=== PATIENT | female | born 2000 | race Caucasian/White ===

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

== ENCOUNTER 2019-04-12 11:11 | Emergency (ER) | payer OTHER ==
--- OUTSIDE RECORDS SUMMARY | 2019-04-12 11:16 | XMS REPORT | Summary of Care ---
:2000 Author Organization [facility] Address [address] [facility] [place] [address] Care Team Providers Name Role Phone Quintin Duque MD Primary Care Provider Reason for Visit Reason Comments Physical LMP 03-25-19, pap 3 years ago. Encounter Details Date Type Department Care Team Description 03/27/2019 Office Visit [place] [facility] Mariana Hernandez MD Encounter for gynecological examination (Primary Dx); Medicine [address] [place] [address] Routine general medical examination at a health care facility; [facility] [place] [address] Bipolar affective disorder, currently manic, moderate ([facility]) [place], [place] [id number] Allergies Active Allergy Reactions Severity Noted Date Comments Environmental Hives, Rash, Respiratory High 03/04/2016 Birch and other Reaction environmental allergens. Food Hives, Rash High 03/04/2016 Allergic to apples, carrots, pineapple Nuts Hives, Rash High 03/04/2016 Almonds Progestins Hives High 03/04/2016 HIve reaction to Mirena IUD and oral contraceptives. documented as of this encounter (statuses as of 03/27/2019) Medications Medication Sig Dispensed Refills Start Date End Date Status Desogestrel-Ethinyl Take by mouth. 0 Active Estradiol (ORTHO-CEPT, 21, PO) hyoscyamine (LEVSIN) Take 0.125 mg by 30 Tab 3 09/05/2018 Active 0.125 MG Oral mouth EVERY FOUR TabIndications: Cramp, HOURS NEEDED abdominal for Cramping. hydrOXYzine HCL TAKE 1 TABLET BY 120 Tab 0 12/19/2018 Active (ATARAX) 10 MG Oral MOUTH EVERY 4-6 TabIndications: Eczema, HOURS NEEDED unspecified type ECZEMA lithium (LITHOBID) 300 Take 300 mg by 0 Active MG Oral Tab CR mouth DAILY. clonazePAM (KLONOPIN) Take 0.5 mg by 0 Active 0.25 mg mouth DAILY. documented as of this encounter (statuses as of 03/27/2019) Active Problems Problem Noted Date Bipolar 1 disorder, depressed, severe 04/05/2016 documented as of this encounter (statuses as of 03/27/2019) Social History Tobacco Use Types Packs/Day Years Used Date Former Smoker Cigarettes 0.1 Quit: 10/24/2015 Smokeless Tobacco: Never Used Alcohol Use Drinks/Week oz/Week Comments Yes 3 Shots of liquor 3.0 Pt. reports drinking heavily over past few weeks Sex Assigned at Date Recorded Not on file Job Start Date Occupation Industry Not on file Not on file Not on file Travel History Travel Start Travel End No recent travel history available. documented as of this encounter Last Filed Vital Signs Vital Sign Reading Time Taken Comments Blood Pressure 118/60 03/27/2019 1:34 PM EDT Pulse 60 03/27/2019 1:34 PM EDT Temperature - - Respiratory Rate - - Oxygen Saturation 99% 03/27/2019 1:34 PM EDT Inhaled Oxygen Concentration - - Weight 47.6 kg (105 lb) 03/27/2019 1:34 PM EDT Height 154.9 cm (5' 1") 03/27/2019 1:34 PM EDT Body Mass Index 19.84 03/27/2019 1:34 PM EDT documented in this encounter Progress Notes Mariana Hernandez MD - 03/27/2019 1:00 PM EDT PATIENT: Kay Argueta DATE: 03/27/2019 Kay Argueta is a 19-y.o. female presents for routine physical exam and Also, she has additional complaints of Patient Active Problem List Diagnosis Bipolar 1 disorder, depressed, severe (HCC) Exercize No GALO. No cardiopulmonary symptoms as dyspnea, cough. palpitations, or chest pain on exertion. No upper or lower GI complaints as heartburn, abdominal pain, change in bowel habits, black or bloody stools. No urinary tract symptoms or incontinence. No symptoms as nocturia, discharge Nobruising/ bleeding. No neurological complaints as dysphagia, imbalance, vertigo, focal weakness. No insomnia.+ Rested after nights sleep. No depression. Does not stop breathing at night. Current Outpatient Medications Medication Sig clonazePAM (KLONOPIN) 0.25 mg Take 0.5 mg by mouth DAILY. Desogestrel-Ethinyl Estradiol (ORTHO-CEPT, 21, PO) Take by mouth. hydrOXYzine HCL (ATARAX) 10 MG Oral Tab TAKE 1 TABLET BY MOUTH EVERY 4-6 HOURS NEEDED ECZEMA hyoscyamine (LEVSIN) 0.125 MG Oral Tab Take 0.125 mg by mouth EVERY FOUR HOURS NEEDED forCramping. lithium (LITHOBID) 300 MG Oral Tab CR Take 300 mg by mouth DAILY. No current facility-administered medications for this visit. Social History Socioeconomic History Marital status: Single Spouse name: Not on file Number of children: Not on file Years of education: Not on file Highest education level: Not on file Occupational History Not on file Social Needs Financial resource strain: Not on file Food insecurity: Worry: Not on file Inability: Not on file Transportation needs: Medical: Not on file Non-medical: Not on file Tobacco Use Smoking status: Former Smoker Packs/day: 0.10 Types: Cigarettes Last attempt to quit: 10/24/2015 Years since quittin.4 Smokeless tobacco: Never Used Substance and Sexual Activity Alcohol use: Yes Alcohol/week: 3.0 standard drinks Types: 3 Shots of liquor per week Comment: Pt. reports drinking heavily over past few weeks Drug use: Yes Types: Marijuana Comment: Marijuana use at age 14-15; denies any recent use Sexual activity: Yes Partners: Male Lifestyle Physical activity: Days per week: Not on file Minutes per session: Not on file Stress: Not on file Relationships Social connections: Talks on phone: Not on file Gets together: Not on file Attends uatsdin service: Not on file Active member of club or organization: Not on file Attends meetings of clubs or organizations: Not on file Relationship status: Not on file Intimate partner violence: Fear of current or ex partner: Not on file Emotionally abused: Not on file Physically abused: Not on file Forced sexual activity: Not on file Other Topics Concern Back Care Not Asked Bike Helmet Not Asked Blood Transfusions Not Asked Caffeine Concern Not Asked Exercise Not Asked Hobby Hazards Not Asked International Travel Not Asked Service Not Asked Occupational Exposure Not Asked Seat Belt Not Asked Self-Exams Not Asked Sleep Concern Not Asked Special Diet Not Asked Stress Concern Not Asked Weight Concern Not Asked Social History Narrative Has son - FLINT NONO - Accounting interest - Family History Problem Relation Age of Onset Depression/Depressed Mother Also Severe depression Anxiety Mother GI Father IBS & Intussuseption Migraines Father Eczema Father Eczema Brother Thyroid Disease Maternal Grandmother Bipolar Disorder Maternal Grandmother Psychiatry Maternal Grandfather Unknown Psych Disorder Maternal Grandfather Schizophrenia Other Maternal great aunt Schizophrenia Maternal Aunt Bipolar Disorder Paternal Uncle OBJECTIVE: BP 118/60 | Pulse 60 | Ht 5' 1" (1.549 m) | Wt 105 lb (47.6 kg) | SpO2 99% | BMI 19.84 kg/m Gen well Heent: ears TM and canals normal eyes Perrl; EOMI oroph-wnl Neck- no JVD,thyromegaly, bruit or lymphademopathy No supraclavicular, axillary or inguinal lymphadenopathy Lungs-clear to auscultation CV RRR no Murmur, gallop or clilck Breasts-no masses or diimpling (examined supine and sitting) Abd. nontender; no organomegaly, abnormal pulsations , bowel sounds normoactive - urethra/ vul/vag neg; cervix wnl; uterus wnl, adnexa-unable Thin prep Rectal deferred - Ext-no edema; rash, DP +2 skin- no rashes or suspicious lesions Neuro- intellect intact; CN II.XII intact; U&LE-strength wnl gait nl A/P ICD-9-CM ICD-10-CM 1. Encounter for gynecological examination V72.31 Z01.419 GC/CHLAMYDIA PCR ASSAY PAP SMEAR THINPREP W/ REFLEX HPV GC/CHLAMYDIA PCR ASSAY 2. Routine general medical examination at a health care facility V70.0 Z00.00 3. Bipolar affective disorder, currently manic, moderate (HCC) 296.42 F31.12 Breast self-exam and bone health recommendations were made Chief Complaint Patient presents with Physical LMP 03-25-19, pap 3 years ago. DT PAP today EKG Author: Mariana Hernandez MD documented in this encounter Plan of Treatment Name Type Priority Associated Diagnoses Date/Time GC/CHLAMYDIA PCR ASSAY Lab Routine Encounter for gynecological 03/27/2019 1:30 PM examination EDT PAP SMEAR THINPREP W/ Lab Routine Encounter for gynecological 03/27/2019 1 :30 PM REFLEX HPV examination EDT Name Type Priority Associated Diagnoses Order Schedule GC/CHLAMYDIA PCR Lab Routine Encounter for gynecological Expected: 2018, ASSAY examination Expires: 09/23/2019 Health Maintenance Due Date Last Done Comments CHLAMYDIA SCREENING 1998 PAP SMEAR 1998 HPV IMMUNIZATION SERIES (1 - 2013 Female 3-dose series) INFLUENZA VACCINE (#1) 2019 DEPRESSION SCREENING 03/27/2020 03/27/2019 HIV SCREENING Completed 03/04/2016 MENINGOCOCCAL VACCINE IMM Aged Out No longer eligible based on patient's age to complete this topic PNEUMOCOCCAL 0-64 YRS Aged Out No longer eligible based on patient's age to complete this topic documented as of this encounter Goals Goal Patient Goal Associated Recent Patient-Stated? Author Type Problems Progress Depression Depression No eladio Hernandez (PHQ-9) MD Mariana total score < 5 Note: This is an individualized treatment (depression) goal for Kay Argueta: Displayed above is your goal for a depression screening (PHQ-9) score that would indicate good control of your depression. Keep a regular sleep schedule Lifestyle No Mariana Hernandez MD Note: This is an individualized lifestyle goal for Kay Argueta: Please maintain a regular sleep schedule. This may help with some symptoms of depression. Take all prescribed medications as directed Self-management No Mariana Hernandez MD Note: This is an individualized self-management goal for Kay Argueta: Please take all prescribed medications as directed. 1. Do not skip doses. If you cannot afford your medications, talk with your doctor. 2. Use a pill reminder system such as a pill box if needed. Your pharmacist can help you with this. 3. Contact your Pharmacy 5 days before your medication runs out. If you cannot take your medications for any reasons, talk with your doctor. 4. Please bring all of your medication bottles and inhalers (or a list of all your medications/inhalers) with you to every visit. Potential barriers to meeting all of your care plan goals will continue to be addressed on an ongoing basis. documented as of this encounter Results Not on filedocumented in this encounter Visit Diagnoses Diagnosis Encounter for gynecological examination - Primary Routine general medical examination at a health care facility Bipolar affective disorder, currently manic, moderate (HCC) Bipolar I disorder, most recent episode (or current) manic, moderate documented in this encounter Insurance Payer Benefit Plan / Subscriber ID Effective Dates Phone Address Type Group [employer] AETNA xxxxxxxxxx 2014-Present [employer] (Work) documented as of this encounter
[2019-04-12 12:20] VITALS: BP 112/58
--- NOTE | 2019-04-12 12:35 | UC ---
Throat Pain/Nasal Roman HPI - HPI Summary HPI Summary: 19-year-old female with cold symptoms since midnight. She denies any fever however has felt chilled did - History of Current Complaint Chief Complaint: UCRespiratory Stated Complaint: COUGH Time Seen by Provider: 04/12/19 12:32 Hx Obtained From: Patient Hx Last Menstrual Period: 03/31/19 ?: No Onset/Duration: Gradual Onset, Lasting Hours Severity: Mild Pain Intensity: 6 Cough: Nonproductive Associated Signs & Symptoms: Positive: Nasal Discharge - Allergies/Home Medications Allergies/Adverse Reactions: Allergies Allergy/AdvReac Type Severity Reaction Status Date / Time MS Eggs or Egg-derived Allergy Rash Verified 04/12/19 12:21 Products [Eggs or Egg-derived Products] MS Lactose [Lactose] Allergy Rash Verified 04/12/19 12:21 MS Latex [Latex] Allergy Rash Verified 04/12/19 12:21 Tree Nuts Allergy Swelling Verified 04/12/19 12:21 Of Face,Lips,& Throat control pills Allergy Rash Uncoded 04/12/19 12:21 Home Medications: Home Medications ALPRAZolam [Xanax] 1 tab PO BID PRN 04/12/19 [History Confirmed 04/12/19] Frannie LIQ* [Frannie Liq*] 5 ml PO DAILY WITH MEAL 04/12/19 [History Confirmed 04/12/19] lamoTRIgine TAB(*) [Lamictal TAB(*)] 1 tab PO DAILY 04/12/19 [History Confirmed 04/12/19] PMH/Surg Hx/FS Hx/Imm Hx Previously Healthy: Yes - Surgical History Surgical History: None - Family History Known Family History: Positive: Other - Patient denies relevant FHx - Social History Occupation: Student Lives: Dormitory/Roommates Alcohol Use: None Substance Use Type: None Smoking Status (MU): Former Smoker - Immunization History Most Recent Influenza Vaccination: Has allergies that contraindicate receiving it Most Recent Pneumonia Vaccination: N/A Vaccination Up to Date: Yes Review of Systems All Other Systems Reviewed And Are Negative: Yes Constitutional: Positive: Chills ENT: Positive: Sore Throat, Nasal Discharge Respiratory: Positive: Cough - Nonproductive cough Is Patient Immunocompromised?: No Physical Exam Triage Information Reviewed: Yes Appearance: Well-Appearing, No Pain Distress, Well-Nourished Vital Signs: Initial Vital Signs Temp 98.1 F 04/12/19 12:13 Pulse 76 04/12/19 12:13 Resp 18 04/12/19 12:13 BP 112/58 04/12/19 12:13 Pulse Ox 100 04/12/19 12:13 Vital Signs Reviewed: Yes Eyes: Positive: Conjunctiva Clear ENT: Positive: Hearing grossly normal, Pharynx normal, Nasal congestion, Nasal drainage - Clear nasal coryza, TMs normal, Uvula midline Neck: Positive: Supple, Nontender, No Lymphadenopathy Respiratory: Positive: Lungs clear, Normal breath sounds, No respiratory distress, No accessory muscle use Cardiovascular: Positive: RRR, No Murmur, Pulses Normal, Brisk Capillary Refill Abdomen Description: Positive: Nontender, No Organomegaly, Soft. Negative: CVA Tenderness (R), CVA Tenderness (L) Bowel Sounds: Positive: Present Musculoskeletal Exam: Normal Neurological Exam: Normal Psychological Exam: Normal Skin Exam: Normal Throat Pain/Nasal Course/Dx - Course Course Of Treatment: I believe the patient has a viral upper respiratory illness. 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 She is to increase fluids. She states [id number] medications don't work for her therefore I'm giving her prescription for benzonatate for her cough. She is not coughing frequently. She is to follow-up with the [facility] if no improvement in 4 or 5 days. - Differential Dx/Diagnosis Provider Diagnosis: URI (upper respiratory infection) Discharge ED - Sign-Out/Discharge Documenting (check all that apply): Patient Departure All imaging exams completed and their final reports reviewed: No Studies - Discharge Plan Condition: Good Disposition: HOME Prescriptions: Benzonatate CAP* [Tessalon 100 MG CAP*] 100 mg PO TID PRN #15 cap PRN Reason: Cough Patient Education Materials: Upper Respiratory Infection (DC) Referrals: No Primary Care Phys,NOPCP [Primary Care Provider] - [facility] - Cesario MOREIRA [[employer], APPLICATION, OTHER] - Additional Instructions: Increase fluids, [id number] cold medicine as directed, follow up at the Health Center if no improvement in 4 or 5 days. - Billing Disposition and Condition Condition: GOOD Disposition: Home
== END 2019-04-12 12:54 | disposition home or self-care (01) ==
LOC: UCEAST 11:11
DX: J06.9 Acute upper respiratory infection, unspecified (principal); Z87.891 Personal history of nicotine dependence; Z91.040 Latex allergy status
CPT/HCPCS: 99212; G0463

== ENCOUNTER 2019-06-15 15:16 | Emergency (ER) | payer OTHER ==
[2019-06-15 15:29] VITALS: BP 111/71
--- NOTE | 2019-06-15 16:04 | UC ---
Throat Pain/Nasal Roman HPI - HPI Summary HPI Summary: 19 year old female with PMH + for asthma presents with sinus pressure/ congestion, cough "rattling in chest" x 3 weeks. progressively worsening, + fatigue, no fever, chills. + diarrhea, but increased use of caffiene over past week due to finals. minimal abdominal pain, no GALO, no ear, throat pain. - History of Current Complaint Chief Complaint: UCRespiratory Stated Complaint: COUGH,CONGESTION Time Seen by Provider: 06/15/19 16:03 Hx Obtained From: Patient Hx Last Menstrual Period: 03/31/19 ?: No Onset/Duration: Sudden Onset Severity: Mild Pain Intensity: 0 Pain Scale Used: 0-10 Numeric Cough: None Associated Signs & Symptoms: Negative: Dysphagia, Sinus Discomfort, Nasal Discharge, Fever, Vomiting - Allergies/Home Medications Allergies/Adverse Reactions: Allergies Allergy/AdvReac Type Severity Reaction Status Date / Time lactose Allergy Rash Verified 06/15/19 15:30 latex Allergy Rash Verified 06/15/19 15:30 Tree Nuts Allergy Swelling Verified 06/15/19 15:30 Of Face,Lips,& Throat control pills Allergy Rash Uncoded 06/15/19 15:30 eggs Allergy Rash Uncoded 06/15/19 15:30 PMH/Surg Hx/FS Hx/Imm Hx Previously Healthy: Yes Respiratory History: Asthma - Surgical History Surgical History: None - Family History Known Family History: Positive: Other - Patient denies relevant FHx, Non- Contributory - Social History Occupation: Student Alcohol Use: Occasionally Substance Use Type: None Smoking Status (MU): Current Some Day Smoker - Immunization History Most Recent Influenza Vaccination: Has allergies that contraindicate receiving it Most Recent Pneumonia Vaccination: N/A Vaccination Up to Date: Yes Review of Systems All Other Systems Reviewed And Are Negative: Yes Constitutional: Negative: Fever, Chills, Fatigue ENT: Positive: Nasal Discharge, Sinus Congestion, Sinus Pain/Tenderness. Negative: Sore Throat, Ear Ache Respiratory: Positive: Cough Cardiovascular: Positive: Negative Motor: Positive: Negative Psychological: Positive: Negative Is Patient Immunocompromised?: No Physical Exam Triage Information Reviewed: Yes Appearance: Well-Appearing, No Pain Distress, Well-Nourished Vital Signs: Initial Vital Signs Temp 98.2 F 06/15/19 15:25 Pulse 90 06/15/19 15:25 Resp 18 06/15/19 15:25 BP 111/71 06/15/19 15:25 Pulse Ox 100 06/15/19 15:25 Vital Signs Reviewed: Yes Eyes: Positive: Conjunctiva Clear ENT: Positive: Pharynx normal, Nasal congestion, Nasal drainage, Sinus tenderness, Uvula midline. Negative: TMs normal, TM bulging, TM dull, TM red, Tonsillar swelling, Tonsillar exudate Neck: Positive: Supple, No Lymphadenopathy, Tenderness @ - vicente-auricular tenderness Respiratory: Positive: Chest non-tender, Lungs clear, Normal breath sounds, No respiratory distress, No accessory muscle use. Negative: Respiratory distress, Crackles, Rhonchi, Stridor, Wheezing Cardiovascular: Positive: RRR Neurological Exam: Normal Psychological Exam: Normal Throat Pain/Nasal Course/Dx - Course Course Of Treatment: sinusitis: v- ANtibiotics as directed due to length of time of symptoms - Use back up control method until starting new control ring after finished antibiotics. - Increase fluid intake - over the counter medications as needed for symptoms- ie cough drops, decongestants. - School note given - Differential Dx/Diagnosis Differential Diagnosis/HQI/PQRI: Pharyngitis, Sinusitis, URI Provider Diagnosis: Sinusitis Discharge ED - Sign-Out/Discharge Documenting (check all that apply): Patient Departure All imaging exams completed and their final reports reviewed: No Studies - Discharge Plan Condition: Good Disposition: HOME Prescriptions: Amoxicillin PO (*) [Amoxicillin 875 MG (*)] 875 mg PO BID #20 tab Patient Education Materials: Sinusitis (ED) Forms: *School Release Referrals: No Primary Care Phys,NOPCP [Primary Care Provider] - Additional Instructions: - ANtibiotics as directed - Use back up control method until starting new control ring after finished antibiotics. - Increase fluid intake - over the counter medications as needed for symptoms- ie cough drops, decongestants. - School note given - Billing Disposition and Condition Condition: GOOD Disposition: Home
== END 2019-06-15 16:30 | disposition home or self-care (01) ==
LOC: UCEAST 15:16
DX: J32.9 Chronic sinusitis, unspecified (principal); R53.83 Other fatigue; R19.7 Diarrhea, unspecified; R10.9 Unspecified abdominal pain; J45.909 Unspecified asthma, uncomplicated; F17.200 Nicotine dependence, unspecified, uncomplicated; R07.0 Pain in throat; Z91.011 Allergy to milk products; Z91.040 Latex allergy status; Z91.018 Allergy to other foods; Z91.012 Allergy to eggs; Z88.8 Allergy status to other drugs, medicaments and biological substances
CPT/HCPCS: 99212; G0463

== ENCOUNTER 2019-09-02 17:15 | Emergency (ER) | payer OTHER ==
[2019-09-02 18:34] VITALS: BP 113/62
--- NOTE | 2019-09-02 18:55 | UC ---
Throat Pain/Nasal Roman HPI - HPI Summary HPI Summary: 19 year old female with PMH + for sinusitis in past presents with 2 months of illness. DIagnosed with sinusitis ~ 1 month ago, given augmentin x 1 week roughly, however ineffective. + sinus drainage, PND, headache- frontal, overall ill/ fatigue feeling. no GI symptoms, no throat pain. + ear fullness , no pain. - History of Current Complaint Chief Complaint: UCGeneralIllness Stated Complaint: COUGH & CONGESTION X 2 MONTHS Time Seen by Provider: 09/02/19 18:49 Hx Obtained From: Patient Hx Last Menstrual Period: 1 week ago ?: No Onset/Duration: Gradual Onset, Lasting Weeks Severity: Moderate Pain Intensity: 5 Pain Scale Used: 0-10 Numeric Cough: None Associated Signs & Symptoms: Positive: Sinus Discomfort, Nasal Discharge - Allergies/Home Medications Allergies/Adverse Reactions: Allergies Allergy/AdvReac Type Severity Reaction Status Date / Time lactose Allergy Rash Verified 09/02/19 18:34 latex Allergy Rash Verified 09/02/19 18:34 Tree Nuts Allergy Swelling Verified 09/02/19 18:34 Of Face,Lips,& Throat control pills Allergy Rash Uncoded 09/02/19 18:34 eggs Allergy Rash Uncoded 09/02/19 18:34 Home Medications: Home Medications Agnew Carbonate TAB* 09/02/19 [History] PMH/Surg Hx/FS Hx/Imm Hx Previously Healthy: Yes - Surgical History Surgical History: None - Family History Known Family History: Positive: Other - Patient denies relevant FHx, Non- Contributory - Social History Occupation: Student Alcohol Use: Occasionally Substance Use Type: Marijuana Smoking Status (MU): Never Smoked Tobacco - Immunization History Most Recent Influenza Vaccination: Has allergies that contraindicate receiving it Most Recent Pneumonia Vaccination: N/A Vaccination Up to Date: Yes Review of Systems All Other Systems Reviewed And Are Negative: Yes Constitutional: Positive: Fatigue ENT: Positive: Nasal Discharge, Sinus Congestion, Sinus Pain/Tenderness Respiratory: Positive: Negative Neurological/Mental Status: Positive: Headache Is Patient Immunocompromised?: No Physical Exam Triage Information Reviewed: Yes Appearance: No Pain Distress, Well-Nourished, Ill-Appearing - mild Vital Signs: Initial Vital Signs Temp 98.3 F 09/02/19 18:31 Pulse 83 09/02/19 18:31 Resp 16 09/02/19 18:31 BP 113/62 09/02/19 18:31 Pulse Ox 100 09/02/19 18:31 Vital Signs Reviewed: Yes Eyes: Positive: Conjunctiva Clear ENT: Positive: Hearing grossly normal, Pharynx normal, Nasal congestion, Nasal drainage, TMs normal, Sinus tenderness - b/l frontal, max. Negative: Tonsillar swelling, Tonsillar exudate, Uvula midline Neck: Positive: Supple, Nontender, No Lymphadenopathy. Negative: Nuchal Rigidity, Enlarged Nodes @ Respiratory: Positive: Chest non-tender, Lungs clear, Normal breath sounds, No respiratory distress, No accessory muscle use. Negative: Respiratory distress, Crackles, Rhonchi, Stridor, Wheezing Cardiovascular: Positive: RRR, No Murmur Musculoskeletal: Positive: Strength Intact - normal gait Neurological Exam: Normal Neurological: Positive: Alert, Muscle Tone Normal Psychological Exam: Normal Skin Exam: Normal Throat Pain/Nasal Course/Dx - Course Course Of Treatment: Sinusitis - Antibiotics as directed - Decongestants, over the counter as needed for symptoms - INcrease fluid intake - Motrin/Tylenol as needed for pain, headache - GO to ER with worsening symptoms, worsening headache, neck pain - Differential Dx/Diagnosis Differential Diagnosis/HQI/PQRI: Pharyngitis, Sinusitis Provider Diagnosis: Sinusitis Discharge ED - Sign-Out/Discharge Documenting (check all that apply): Patient Departure All imaging exams completed and their final reports reviewed: No Studies - Discharge Plan Condition: Good Disposition: HOME Prescriptions: Azithromyxin BIN (NF) [Z-Bin (Zithromax) 250 mg tabs #6] 2 tab PO .TODAY, THEN 1 DAILY #6 tab Patient Education Materials: Sinusitis (ED) Referrals: No Primary Care Phys,NOPCP [Primary Care Provider] - Additional Instructions: - Antibiotics as directed - Decongestants, over the counter as needed for symptoms - INcrease fluid intake - Motrin/Tylenol as needed for pain, headache - GO to ER with worsening symptoms, worsening headache, neck pain - Billing Disposition and Condition Condition: GOOD Disposition: Home
== END 2019-09-02 19:20 | disposition home or self-care (01) ==
LOC: UCEAST 17:15
DX: J32.9 Chronic sinusitis, unspecified (principal); Z88.8 Allergy status to other drugs, medicaments and biological substances; Z91.012 Allergy to eggs; Z91.040 Latex allergy status; Z91.011 Allergy to milk products; Z91.018 Allergy to other foods
CPT/HCPCS: 99212; G0463

== ENCOUNTER 2019-09-21 20:28 | Emergency (ER) | payer OTHER ==
[2019-09-21 22:25] LABS: ABS Eosinophils 0.1 10^3/ul (0-0.6); ABS Monocytes 0.5 10^3/ul (0-0.8); ABS Neutrophils 2.8 10^3/ul (1.5-7.7); Eosinophil % 1.1 %; Hematocrit 44 % (35-47); Hemoglobin 15.1 g/dL (12.0-16.0); Mean Corpuscular HGB Conc 34 g/dL (31-36); Mean Corpuscular Hemoglobin 29 pg (27-31); Mean Corpuscular Volume 86 fL (80-97); Mean Platelet Volume 7.8 fL (7.4-10.4); Nucleated Red Blood Cells % 0.1; Platelet Count 262 10^3/uL (150-450); Red Blood Count 5.17 10^6 /uL (3.70-4.87); Red Cell Distribution Width 13 % (10-15); White Blood Count 5.4 10^3/uL (3.5-10.8)
[2019-09-21 22:44] LABS: ALT 12 U/L (7-52); AST 16 U/L (13-39); Albumin 4.6 g/dL (3.2-5.2); Albumin/Globulin Ratio 1.4 (1-3); Alkaline Phosphatase 41 U/L (34-104); Anion Gap 7 mmol/L (2-11); BUN/Creatinine Ratio 18.4 (8-20); Blood Urea Nitrogen 14 mg/dL (6-24); C Reactive Protein 3.79 mg/L (<8.01); CO2 Carbon Dioxide 25 mmol/L (22-32); Chloride 105 mmol/L (101-111); EGFR African American 116.2 (>60); EGFR Non-African American 96.1 (>60); Globulin 3.2 g/dL (2-4); Glucose 93 mg/dL (70-100); Potassium 4.4 mmol/L (3.5-5.0); Sodium 137 mmol/L (135-145); Total Protein 7.8 g/dL (6.4-8.9)
[2019-09-21] MEDS ORDERED: Ibuprofen TAB* 600 MG PO ONE (22:46)
--- NOTE | 2019-09-21 22:48 | ED ---
Back Pain - HPI Summary HPI Summary: 19-year-old female presents to the emergency department today with a chief complaint of back pain. Patient states she's had 8 out of 10 back pain for approximately 3 days. Patient states her back pain is located on the right mid back as well as the right lower back. Patient denies recent trauma or falls. Patient denies any numbness or tingling, difficulty with ambulation, radiculopathy. Patient states she has no pain with urination or difficulty urinating. Patient is otherwise well and denies fever, chest pain, abdominal pain, pain with urination, rash, nausea, vomiting, diarrhea. Patient denies personal or family history of cancer, autoimmune disorders. - History of Current Complaint Chief Complaint: EDBackInjuryPain Stated Complaint: BACK PAIN PER PT Time Seen by Provider: 09/21/19 22:18 Hx Obtained From: Patient Hx Last Menstrual Period: 1 week ago Onset/Duration: Gradual Onset Onset/Duration: Started Days Ago Timing: Constant Severity Initially: Mild Severity Currently: Severe Pain Intensity: 8 Pain Scale Used: 0-10 Numeric Character: Aching Aggravating Symptom(s): Movement, Lifting, Bending, Walking Alleviating Symptom(s): Rest Associated Signs And Symptoms: Negative: Swelling, Redness, Fever, Weakness, Numbness, Bladder Incontinence, Bowel Incontinence - Allergies/Home Medications Allergies/Adverse Reactions: Allergies Allergy/AdvReac Type Severity Reaction Status Date / Time lactose Allergy Rash Verified 09/21/19 22:24 latex Allergy Rash Verified 09/21/19 22:24 Tree Nuts Allergy Swelling Verified 09/21/19 22:24 Of Face,Lips,& Throat control pills Allergy Rash Uncoded 09/21/19 22:24 eggs Allergy Rash Uncoded 09/21/19 22:24 Home Medications: Home Medications Cyclobenzaprine TAB* [Flexeril 10 MG TAB*] 10 mg PO TID PRN #12 tab 09/21/19 [Rx ] Etonogestrel/Ethinyl Estradiol [Etonogestrel-Ee Vaginal Ring] 1 applic INTRA- CAVE MONTHLY 09/21/19 [History Confirmed 09/21/19] PMH/Surg Hx/FS Hx/Imm Hx Endocrine/Hematology History: Denies: Hx Diabetes, Hx Thyroid Disease Cardiovascular History: Denies: Hx Hypertension Respiratory History: Reports: Hx Asthma Denies: Hx Chronic Obstructive Pulmonary Disease (COPD) GI History: Reports: Hx Gastroesophageal Reflux Disease - ESOPHAGEAL REFLUX, Hx Irritable Bowel Denies: Hx Ulcer Sensory History: Denies: Hx Contacts or Glasses, Hx Hearing Aid Opthamlomology History: Denies: Hx Contacts or Glasses Psychiatric History: Reports: Hx Anxiety, Hx Attention Deficit Hyperactivity Disorder, Hx Depression, Hx Bipolar Disorder, Other Psychiatric Issues/ Disorders - ADHD Denies: Hx of Violent Episodes Against Others Infectious Disease History: Yes Infectious Disease History: Denies: Hx Clostridium Difficile, Hx Hepatitis, Hx Human Immunodeficiency Virus (HIV), Hx of Known/Suspected MRSA, Hx Tuberculosis, Hx Known/Suspected VRE , Hx Known/Suspected VRSA, Traveled Outside the [place] in Last 30 Days - Family History Known Family History: Positive: Other - Patient denies relevant FHx, Non- Contributory - Social History Alcohol Use: Occasionally Hx Substance Use: No Substance Use Type: Reports: Marijuana Substance Use Comment - Amount & Last Used: daily Hx Tobacco Use: No Smoking Status (MU): Never Smoked Tobacco Review of Systems Constitutional: Negative Eyes: Negative ENT: Negative Cardiovascular: Negative Respiratory: Negative Gastrointestinal: Negative Genitourinary: Negative Positive: Arthralgia, Myalgia Skin: Negative Neurological/Mental Status: Negative Psychological: Normal All Other Systems Reviewed And Are Negative: Yes Physical Exam - Summary Physical Exam Summary: Patient is in no acute distress. Patient has a antalgic gait however she is ambulatory. Patient is able to walk on her heels, toes, 1 foot from the other. Patient's balance is intact. [id number] intact. Patient has full range of motion of the cervical and lumbar spine. Negative Spurling test. Negative straight leg test. No evidence of ecchymosis, edema, erythema of the spine. Patient has pain with palpation of the paraspinal muscles on the thoracic spine. No midline tenderness. Triage Information Reviewed: Yes Vital Signs On Initial Exam: Initial Vitals Temp Pulse Resp BP Pulse Ox 98 F 99 18 170/70 99 09/21/19 20:32 09/21/19 20:32 09/21/19 20:32 09/21/19 20:32 09/21/19 20:32 Vital Signs Reviewed: Yes Appearance: Positive: Well-Appearing, No Pain Distress, Well-Nourished Skin: Positive: Warm, Skin Color Reflects Adequate Perfusion Eyes: Positive: EOMI, GONZALO ENT: Positive: Hearing grossly normal Respiratory/Lung Sounds: Positive: Clear to Auscultation, Breath Sounds Present Cardiovascular: Positive: RRR, S1, S2 Abdomen Description: Positive: Nontender, Soft Bowel Sounds: Positive: Present Musculoskeletal: Positive: Strength/ROM Intact Neurological: Positive: Sensory/Motor Intact, Alert, Oriented to Person Place, Time, Normal Gait, Facial Symmetry, Speech Normal Psychiatric: Positive: Normal, Affect/Mood Appropriate AVPU Assessment: Alert Procedures - Sedation Patient Received Moderate/Deep Sedation with Procedure: No Diagnostics - Vital Signs Vital Signs Temp Pulse Resp BP Pulse Ox 09/21/19 20:32 98 F 99 18 170/70 99 - Laboratory Lab Results: Lab Results 09/21/19 09/21/19 09/21/19 Range/Units 22:14 22:14 22:14 WBC 5.4 (3.5-10.8) 10^3/uL RBC 5.17 H (3.70-4.87) 10^6 /uL Hgb 15.1 (12.0-16.0) g/dL Hct 44 (35-47) % MCV 86 (80-97) fL MCH 29 (27-31) pg MCHC 34 (31-36) g/dL RDW 13 (10-15) % Plt Count 262 (150-450) 10^3/uL MPV 7.8 (7.4-10.4) fL Neut % (Auto) 52.0 % Lymph % (Auto) 37.0 % [place] % (Auto) 9.4 % Eos % (Auto) 1.1 % Baso % (Auto) 0.5 % Absolute Neuts (auto) 2.8 (1.5-7.7) 10^3/ul Absolute Lymphs (auto) 2.0 (1.0-4.8) 10^3/ul Absolute Monos (auto) 0.5 (0-0.8) 10^3/ul Absolute Eos (auto) 0.1 (0-0.6) 10^3/ul Absolute Basos (auto) 0.0 (0-0.2) 10^3/ul Absolute Nucleated RBC 0.0 10^3/ul Nucleated RBC % 0.1 Sodium 137 (135-145) mmol/L Potassium 4.4 (3.5-5.0) mmol/L Chloride 105 (101-111) mmol/L Carbon Dioxide 25 (22-32) mmol/L Anion Gap 7 (2-11) mmol/L BUN 14 (6-24) mg/dL Creatinine 0.76 (0.51-0.95) mg/dL Est GFR ( Amer) 116.2 (>60) Est GFR (Non-Af Amer) 96.1 (>60) BUN/Creatinine Ratio 18.4 (8-20) Glucose 93 (70-100) mg/dL Lactic Acid 0.9 (0.5-2.0) mmol/L Calcium 10.0 (8.6-10.3) mg/dL Total Bilirubin 0.40 (0.2-1.0) mg/dL AST 16 (13-39) U/L ALT 12 (7-52) U/L Alkaline Phosphatase 41 (34-104) U/L C-Reactive Protein 3.79 (<8.01) mg/L Total Protein 7.8 (6.4-8.9) g/dL Albumin 4.6 (3.2-5.2) g/dL Globulin 3.2 (2-4) g/dL Albumin/Globulin Ratio 1.4 (1-3) Beta HCG, Quant Pending Result Diagrams: 09/21/19 22:14 09/21/19 22:14 Lab Statement: Any lab studies that have been ordered have been reviewed, and results considered in the medical decision making process. Back Pain Course/Dx - Course Course Of Treatment: Patient was evaluated in the emergency department today for back pain. Vitals are stable. Patient has no evidence of fever. There is no evidence of cauda equina. Laboratory studies returned with no modalities. No leukocytosis, electrolyte disturbance, anemia. Patient denies history of trauma. Patient's symptoms are consistent with mechanical back pain due to muscle spasm. Patient discharged with outpatient follow-up. Patient given outpatient prescription for ibuprofen and Flexeril. - Diagnoses Differential Diagnosis/HQI/PQRI: Positive: Cauda Equina Syndrome, Compressive Cord Syndrome, Epidural Abscess, Herniated Disc, Strain, Sprain Provider Diagnoses: Back pain Discharge ED - Sign-Out/Discharge Documenting (check all that apply): Patient Departure - Discharge Plan Condition: Stable Disposition: HOME Prescriptions: Cyclobenzaprine TAB* [Flexeril 10 MG TAB*] 10 mg PO TID PRN #12 tab PRN Reason: Pain - Moderate Patient Education Materials: Back Pain (ED) Referrals: No Primary Care Phys,NOPCP [Primary Care Provider] - Additional Instructions: You were seen in the emergency department today for back pain. Please follow up with your primary care physician in 5 days for further evaluation and management of your injury. Please take for your symptoms: Ibuprofen 600mg three times daily with meals for pain. (Anti Inflammatory) Flexeril 10mg every 6 hours as needed for pain. (Muscle relaxant) Most people with an episode of low back pain do not have a serious medical problem, and can try simple treatments such as: ?Staying active The best thing you can do is to stay as active as possible. People with low back pain recover faster if they stay active. If your pain is severe, you might need to rest for a day or 2. But it's important to get back to walking and moving as soon as possible. While you should avoid heavy lifting and sports while your back hurts, try to keep doing your normal daily activities. ?Heat Some people find that it helps to use a heating pad or heated wrap. Be careful to avoid high heat settings to prevent skin tyler. Spinal manipulation This is when a chiropractor, physical therapist, or other professional moves or "adjusts" the joints of your back. If you want to try this, talk to your doctor or nurse first. Acupuncture This is when someone who knows traditional [place] medicine inserts tiny needles into your body to block pain signals. Massage While back pain usually goes away within a few weeks, some people do continue to have pain for longer. In this case, additional treatments might include: ?Self care This involves being aware of your pain. While you should rest when you need to, it's important to stay active as much as you can. Things like applying heat and doing gentle stretches can help you feel better, too. ?Physical therapy A physical therapist is an exercise expert who can teach you stretches and movements to help strengthen your muscles. The goal is to relieve pain but also help you get back to your normal activities. Exercises you can try include walking, swimming, or using an exercise bike. Some people also find that [employer] or yoga can help with their back pain. Finding activities you enjoy can help you stay active. ?Reducing stress Some people find that it helps to try something called "mindfulness-based stress reduction." This involves going to a group program to practice relaxation and meditation. If your back pain is making you feel anxious or depressed, talk to your doctor or nurse. There are other treatments that can help with these problems. Only a small number of people end up needing surgery to treat back pain. Please follow-up with your [facility] for further evaluation and management. Please return to the emergency department immediately if you develop any new or worsening symptoms. - Billing Disposition and Condition Condition: STABLE Disposition: Home
[2019-09-21 22:51] LABS: HCG Pregnancy < 0.60 mIU/mL
[2019-09-21] MEDS ORDERED: Cyclobenzaprine TAB* 10 MG PO ONE (22:57)
[2019-09-21 23:17] VITALS: BP 115/82
== END 2019-09-21 23:15 | disposition home or self-care (01) ==
LOC: ED 20:28
DX: M54.6 Pain in thoracic spine (principal); M54.5 Low back pain; Z88.8 Allergy status to other drugs, medicaments and biological substances; Z91.030 Bee allergy status; Z91.040 Latex allergy status; Z91.011 Allergy to milk products; Z91.018 Allergy to other foods
CPT/HCPCS: 36415; 80053; 83605; 84702; 85025; 86140; 99282; A9270-GY